=== PATIENT | female | born 1980 | race Caucasian/White ===

== ENCOUNTER 2017-04-28 05:06 | Outpatient (CLI) | payer MEDICAID ==
[~2017-04-28] VITALS: Ht 165.1 cm; Wt 112.8 kg
[2017-04-28 05:26] VITALS: BP 127/64; PULSE 85; RESP 18; Ht 165.1 cm; Wt 112.8 kg
[2017-04-28] MEDS ORDERED: FER325 PO (05:28)
[2017-04-28] MEDS ORDERED: PREN1TAB17 PO (05:28)
--- NOTE | 2017-04-28 07:23 | RADRPT ---
PROCEDURE: Obstetrical ultrasound, limited. CLINICAL INDICATION: Pelvic pain. TECHNIQUE: Multiple sonographic images of the pelvis were obtained using transabdominal technique . Images were obtained with cochran scale and color Doppler. The images were reviewed on a PACS works tation. COMPARISON: No prior studies are available for comparison. FINDINGS: There is a single living intrauterine gestation with the fetus in a vertex presentation. hear t tones of 126 beats per minute are identified. The placenta is anterior and fundal in location, gr kash 2. there is no evidence of placental abruption. IMPRESSION: Single viable intrauterine gestation. .Jose Roberto Tran MD, MD Date Time Electronically viewed and signed by .Jose Roberto Tran MD, MD on 04/28/2017 07:22 .T/
--- NOTE | 2017-04-28 09:42 | CONS ---
Date/Time of Note Date/Time of Note DATE: 04/28/17 TIME: 09:28 Consultation Date/Type/Reason Admit Date/Time April 28, 2017 OB triage consult Reason for Consultation This patient is a 36 years old 9 para 7 1 living 7 all her deliveries were very spontaneous vaginal delivery.. Her estimated date of confinement is 05/13/2017 which makes her 37 weeks and 6 days now. She came early this morning in triage because she fell down the steps about 8 stairs and has occasional contraction. No complaint of bleeding . On examination she is a well-developed well-nourished lady, her weight is 112.8 pound. . In reviewing her record, her blood type O+, hepatitis B surface antigen and HIV, RPR, chlamydia and gonorrhea all negative.. Her general vital signs are basically normal; with blood pressure 127/64, pulse 85,, respiration 18, temperature 98.1. There was no evidence of trauma on her head or anywhere else in the body, hands and legs. Abdomen was soft, heart tone was normal. heart tracing shows a good variability, occasional acceleration no deceleration. On pelvic examination the cervix was 2 cm 40% effaced head at -3 station membranes were intact the pelvic exam was done at 7:00 in the morning Laboratory Tests Test 04/28/17 06:10 Kleihauer-Betke Stain 0.0000F/ARatio Constitutional: other (No evidence of injury anywhere in the body), No chills, No diaphoresis, No disoriented, No febrile, No improved, No no complaints, No poor po, No requiring IVF, No requiring O2 Eyes: No discharge, No no complaints, No other, No pain, No redness, No visual change ENT: No bleeding, No congestion, No discharge, No dysphagia, No no complaints, No other, No pain, No sore throat Respiratory: No cough, No no complaints, No other, No pain, No pleuritic pain, No shortness of breath, No sputum, No wheezing Cardiovascular: No chest pain, No edema, No lightheadedness, No no complaints, No orthopenea, No other, No palpitations, No paroxysmal nocturnal dyspnea Gastrointestinal: No blood, No constipation, No decreased appetite, No diarrhea , No flatus, No nausea, No no complaints, No other, No pain, No passing stool, No vomiting Genitourinary: other (L admission on her pelvic exam the cervix was 2 cm 40% and -3 station), No bleeding, No discharge, No dysuria, No flank pain, No hematuria, No no complaints Musculoskeletal: other (No evidence of trauma), No back pain, No bone/joint pain, No neck pain, No no complaints, No restricted range of motion, No swelling Skin: No bruising, No erythema, No laceration, No no complaints, No other, No pruritis, No rash, No skin lesions Neurologic: other (Knee-jerk reflex was), No confusion, No dizziness, No focal-weakness, No headache, No no complaints , No seizure, No syncope Endocrine: No dry skin, No no complaints, No other, No polydypsia, No polyuria , No temp intolerance Psychological: No anxiety, No confusion, No depression, No nl mood/affect, No no complaints, No other, No suicidal Additional Comments We did a Kleihauer-Betke test result was 0.00 An ultrasound study was performed the report was ;a single live intrauterine gestation in vertex presentation, heart tone was normal 126 bpm ,the placenta was anterior, there was no evidence of abruption of placenta. With these positive finding patient was discharged home with recommendation to be careful during the in coming down the steps or walking and return to the labor delivery room in case of a labor ,rupture of membranes or any vaginal bleeding End of dictation Social History Smoking Status: Former smoker Exam/Review of Systems Vital Signs Vitals Vital Signs Date Time Temp Pulse Resp B/P Pulse Ox O2 Delivery O2 Flow Rate FiO2 04/28/17 05:26 98.1 85 18 127/64 Room Air Results Results 24 hrs Laboratory Tests Test 04/28/17 06:10 Kleihauer-Betke Stain 0.0000 LUCIA ASIF MD Apr 28, 2017 09:41
--- NOTE | 2017-04-28 10:04 | TRIAGE ---
OB Triage Datetime Report Generated by CPN: 04/28/2017 10:04 Datetime: 04/28/2017 09:00 Labor Evaluation Frequency: X1 Monitor Mode: External Duration (sec)2399: 50 Quality: Mild Pattern: Normal: <= 5 Contractions in 10 Minutes Resting Tone [place]: Relaxed Heart Rate FHR Baseline Rate: 120 Monitor Mode: External US FHR Baseline Changes: No Baseline Change Variability: Moderate 6-25 bpm Accelerations: 15X15 Decelerations: None Category: Category I Pain Assessment Pain Scale: 0 Pain Presence: None/Denies Pain Type: N/A Pain Assessment Comments: PT SLEEPING Datetime: 04/28/2017 08:00 Labor Evaluation Frequency: X3 Monitor Mode: External Duration (sec)2399: 50-60 Quality: Mild Pattern: Normal: <= 5 Contractions in 10 Minutes Resting Tone [place]: Relaxed Heart Rate FHR Baseline Rate: 125 Monitor Mode: External US FHR Baseline Changes: No Baseline Change Variability: Moderate 6-25 bpm Accelerations: 15X15 Decelerations: None Category: Category I Pain Assessment Pain Scale: 0 Pain Presence: None/Denies Pain Type: N/A Pain Assessment Comments: PT SLEEPING Datetime: 04/28/2017 07:15 Assessment Type: Triage Maternal Assessment Level of Consciousness: Fully Conscious DTR's/Clonus: DTRs 2+; No Clonus Headache: Denies Blurred Vision: No Respiratory Effort: Unlabored; Regular Rhythm Breath Sounds, Left: Clear and Equal Breath Sounds, Right: Clear and Equal Nausea/Vomiting: Denies RUQ Epigastric Pain: Denies Lower Extremities Edema: None Degree: None Upper Extremities Edema: None Degree: None Facial Edema: None Fall Risk Assessment History of Falling: (25) Yes Secondary Diagnosis: (0) No Ambulatory Aid: (0) Bedrest/Nurse Assist IV Therapy: (0) No Gait: (0) Normal/Bedrest/Immobile Mental Status: (0) Oriented to Own Ability Fall Score: 25 Fall Risk Score Definition: Low Risk: Please see standard fall prevention interventions Datetime: 04/28/2017 07:13 Pain Assessment Pain Scale: 0 Pain Presence: None/Denies Pain Type: N/A Datetime: 04/28/2017 07:00 Labor Evaluation Frequency: 2-7 Monitor Mode: External Duration (sec)2399: 40-60 Quality: Mild Pattern: Normal: <= 5 Contractions in 10 Minutes Resting Tone [place]: Relaxed Heart Rate FHR Baseline Rate: 125 Monitor Mode: External US Variability: Moderate 6-25 bpm Accelerations: 15X15 Decelerations: None Category: Category I Datetime: 04/28/2017 06:51 Vaginal Exam Dilatation (cms): 2.0 Effacement (%): 40 Station: -3 Exam By: BE Vaginal Bleeding: None Cervix, Consistency: Moderate Cervix, Position: Midposition Presentation 'A': Unable to Assess Datetime: 04/28/2017 06:23 Membrane Status: Intact Datetime: 04/28/2017 06:00 Labor Evaluation Frequency: X3 Monitor Mode: External Duration (sec)2399: 40-60 Quality: Mild Pattern: Normal: <= 5 Contractions in 10 Minutes Resting Tone [place]: Relaxed Heart Rate FHR Baseline Rate: 120 Monitor Mode: External US Variability: Moderate 6-25 bpm Accelerations: 15X15 Decelerations: None Category: Category I Datetime: 04/28/2017 05:19 Stage of : OB Triage Assessment Type: Triage Maternal Assessment Level of Consciousness: Fully Conscious DTR's/Clonus: DTRs 1+; No Clonus Headache: Denies Blurred Vision: No Respiratory Effort: Unlabored Lower Extremities Edema: None Degree: None Upper Extremities Edema: None Degree: None Temperature Route: Oral Pain Assessment Pain Scale: 6 Pain Presence: Intermittent Pain Type: Cramping Pain Location: Abdomen; Back Datetime: 04/28/2017 05:12 Stage of : OB Triage Time of Arrival: 04/28/2017 05:00 EGA: 37.6 Chief Complaint: PATIENT FELL DOWN THE STAIRS @0100. PATIENT STATES THAT SHE ROLLED DOWN 8 STAIRS , UNSURE IF SHE HIT ABDOMEN. STARTING FEELING UC'S @0130 Movement: Present Contractions: Irregular Time Contractions Began: 04/28/2017 01:30 Rupture of Membranes: Denies Vaginal Bleeding: None Vaginal Discharge: Denies Recent Sexual Intercouse: Denies Abdominal Trauma: Fall Patient Complaints: Contractions Time Provider Notified: 04/28/2017 08:08 Provider Notified: JAY Initial Plan: CE[facility]
== END 2017-04-28 09:23 | disposition home or self-care (01) ==
LOC: OBT 05:06 → L-D 05:07 → OBT 09:23
PROVIDERS: ATTEND Obstetrics & Gynecology
DX: O62.8 Other abnormalities of forces of labor (principal); Z3A.37 37 weeks gestation of pregnancy
CPT/HCPCS: 36415; 76815; 85460; Z7500; G0463

== ENCOUNTER 2018-03-18 14:45 | Inpatient (IN) | END 2018-03-27 16:05 | disposition home or self-care (01) | DRG 774 ==

== ENCOUNTER 2018-05-03 19:49 | Outpatient (CLI) | END 2018-05-03 20:45 | disposition home or self-care (01) ==

== ENCOUNTER 2018-05-24 23:57 | Inpatient (IN) | END 2018-05-27 16:45 | disposition home or self-care (01) | DRG 774 ==

== ENCOUNTER 2019-01-17 22:50 | Emergency (ER) | payer MEDICAID ==
[~2019-01-17] VITALS: Ht 162.6 cm; Wt 99.2 kg
[~2019-01-17 22:50] MED LIST: FER325 PO; PREN1TAB17 PO
[2019-01-17 23:05] VITALS: Ht 162.6 cm; Wt 99.2 kg
--- NOTE | 2019-01-18 01:51 | ERD ---
ER Documentation Chief Complaint Chief Complaint sent for Syphilis r/o 24 wks preg HPI 38-year-old female, with history of syphilis during previous pregnancies, presents to the emergency department, referred by his primary doctor for treatment for syphilis. The patient is a , currently at approximately 24 weeks. ROS All systems reviewed and are negative except as per history of present illness. Medications Home Meds Reported Medications Ferrous Sulfate* (Ferrous Sulfate*) 325 Mg Tabec, 325 MG PO DAILY, TAB 04/28/17 Vit-Iron Fumarate-FA ( Tablet) 1 Each Tablet, 1 TAB PO DAILY, TAB 04/28/17 Allergies Allergies: Coded Allergies: morphine (Verified Allergy, Intermediate, rash, 05/24/18) PMhx/Soc Medical and Surgical Hx: pt denies Medical Hx, pt denies Surgical Hx History of Surgery: No Anesthesia Reaction: No Hx Neurological Disorder: No Hx Respiratory Disorders: No Hx Cardiac Disorders: No Hx Psychiatric Problems: No Hx Miscellaneous Medical Probl: No Hx Alcohol Use: No Hx Substance Use: No Hx Tobacco Use: No Smoking Status: Never smoker FmHx Family History: diabetes; No coronary disease Physical Exam Vitals Vital Signs Date Temp Pulse Resp B/P (MAP) Pulse Ox O2 O2 Flow FiO2 Time Delivery Rate 01/18/19 98.4 73 16 117/78 100 Room Air 03:30 (91) 01/17/19 97.9 79 16 107/56 98 23:05 (73) Physical Exam Const: No acute distress Head: Atraumatic Eyes: Normal Conjunctiva ENT: Normal External Ears, Nose and Mouth. Neck: Full range of motion. No meningismus. Resp: Clear to auscultation bilaterally Cardio: Regular rate and rhythm, no murmurs Abd: Soft, non tender, non distended. Normal bowel sounds Skin: generalized maculopapular erythematous rash involving palms, soles and m ucous membranes. Back: No midline or flank tenderness Ext: No cyanosis, or edema Neur: Awake and alert Psych: Normal Mood and Affect Results 24 hrs Current Medications Medications Dose Sig/Mitch Start Time Status Last (Trade) Ordered Route PRN Stop Time Admin Dose Reason Admin Penicillin 2,400,000 ONCE ONCE 01/18/19 DC 01/18/19 G units IM 02:00 02:33 Benzathine 01/18/19 02:09 (Bicillin La) Ceftriaxone 250 mg ONCE ONCE 01/18/19 DC 01/18/19 Sodium IM 02:00 02:33 (Rocephin) 01/18/19 02:09 1,000 mg ONCE ONCE 01/18/19 DC 01/18/19 Azithromycin PO 02:00 02:32 (Zithromax) 01/18/19 02:09 Lidocaine 5 ml ONCE ONCE 01/18/19 DC 01/18/19 (Xylocaine INFIL 02:00 02:34 1% (Mpf)) 01/18/19 02:09 Procedures/MDM Vital signs stable. Differential diagnosis considered include UTI, cystitis, yeast infection, vaginitis, bacterial vaginosis, pelvic inflammatory disease, STI's . Less likely malignancy or acute abdomen. During the ED course the patient remained stable, no new complaints. Results and clinical impression discussed with the patient who agrees with management. The patient is stable to be treated outpatient and will be discharged home; some side effects of prescribed medications (headache, rash, nausea, vomiting, diarrhea, drowsiness, habituation, bleeding, hypertension, interactions with other medications) were reviewed. Follow up with the primary care provider in the next 48h has been recommended. If symptoms persist, worsen or new symptoms develop, then patient should return to the ED immediately. Instructions explained and given directly by me to the patient with acknowledgment and demonstrated understanding. Disclaimer: Inadvertent spelling and grammatical errors are likely due to EHR/dictation software use and do not reflect on the overall quality of patient care. Also, please note that the electronic time recorded on this note does not necessarily reflect the actual time of the patient encounter. Departure Diagnosis: Primary Impression: 22 weeks gestation of Additional Impression: Syphilis affecting in second trimester Condition: Stable Additional Instructions: Muchas chanelle por [facility] para [place] servicio. Esperamos que en [place] visita a la leidy de emergencia [place] problema medico haya sido solucionado y que se sienta mucho mejor. Para estar seguros que [place] mejoria sigue en proceso, le pedimos el favor de hacer kirk hal de seguimiento medico con [place] doctor primario en los proximos 2-4 gonzales. Lleve con usted estos documentos y las medicinas recetadas. Si erica sintomas empeoran, NO SE ESPERE, por favor regrese a leidy de emergencia INMEDIATAMENTE. En angela que usted no tenga un mdico de atencin primaria: Llame al mdico o clnica comunitaria de referencia que aparece abajo elyse las horas de consultorio para hacer kirk hal para que le vean. CLINICAS: [facility] [id number] [facility] [id number] [facility] [id number] [facility] [id number] [facility] [phone] [id number] [facility] [phone] MARTINA JOSE MD Jan 18, 2019 01:51
[2019-01-18] MEDS ORDERED: LIDOCAINE 1% (MPF) 5 ML VIAL INFIL ONE (02:00)
[2019-01-18] MEDS ORDERED: PENICILLIN G BENZ 2.4 MIL UNIT SYG IM ONE (02:00)
[2019-01-18] MEDS ORDERED: CEFTRIAXONE 250 MG INJ IM ONE (02:00)
[2019-01-18] MEDS ORDERED: AZITHROMYCIN 500 MG TAB PO ONE (02:00)
[2019-01-18 03:30] VITALS: BP 117/78; PULSE 73; RESP 16
== END 2019-01-18 03:30 | disposition home or self-care (01) ==
LOC: FTE 22:50
DX: O98.112 Syphilis complicating pregnancy, second trimester (principal); Z3A.22 22 weeks gestation of pregnancy
CPT/HCPCS: 76805; 96372; J0561; J0696; Z7502; Z7610